=== PATIENT | male | born 2000 | race Caucasian/White ===

== ENCOUNTER 2024-01-10 11:41 | Emergency (ER) | payer BC, SELFPAY ==
[2024-01-10] MEDS ORDERED: Lidocaine 1% w/Epinephrine 1:100K 20 ML VIAL ONE (12:30)
[2024-01-10] MEDS ORDERED: HYDROcodone/Acetaminophen 5/325 mg Tablet ONE (13:01)
[2024-01-10] MEDS ORDERED: Bacitracin 1 PK ONE (13:36)
== END 2024-01-10 13:45 | disposition home or self-care (01) ==
LOC: MADERS 11:41
DX: S71.112A Laceration without foreign body, left thigh, initial encounter (principal); F17.290 Nicotine dependence, other tobacco product, uncomplicated; W29.3XXA Contact with powered garden and outdoor hand tools and machinery, initial encounter
CPT/HCPCS: 12002; 99282